=== PATIENT | female | born 1955 | race Caucasian/White ===

== ENCOUNTER → 2018-04-14 | Outpatient (CLI) | payer OTHER ==
[~2018-04-14] MED LIST: ADVIL LIQUI-GE200 MG PO; AMBIEN 5 MG TABL5 M1 PO; CRESTOR10 MG PO; DULERA 100 MCG/13 GM; DULERA 200 MCG/13 GM INH; NEXIUM20 MG PO; NEXIUM40 MG PO; NORCO 5-325 TA1 EACH PO; ONDANSETRON HCL4 M2 PO; SINGULAIR 10 MG10 M1 PO; SYMBICORT80 MCG/4.1 INH; UNICOMPLEX M TA1 TA1 PO; VENTOLIN HFA 1818 GM INH; VITAMIN B-12500 MCG PO; VITAMIN D5000 UNIT PO; WOMEN'S 50+ DA1 EACH PO
[2018-04-14 08:14] LABS: CREATININE 0.8 mg/dL (0.6-1.0)
== END ==
LOC: CAT 07:13
PROVIDERS: Family Medicine
DX: K43.9 Ventral hernia without obstruction or gangrene (principal); R10.9 Unspecified abdominal pain